=== PATIENT | male | born 1950 | race Caucasian/White ===

== ENCOUNTER 2017-04-17 17:39 | Emergency (ER) | payer SELFPAY ==
[2017-04-17 18:27] VITALS: O2SAT 100
--- NOTE | 2017-04-17 21:36 | C.PDOC ---
History Of Present Illness 66yo male, presents to ER with complaints of diarrhea for the past 3 days; he reprots 5 episodes of loose and watery diarrhea for one day and 3 episodes of soft, medium formed stools for 2 days. He thinks he might have amebiasis since he recently immigrated to the from [facility] 1 year ago. He also states he drinks a large glass of milk with oatmeal 2x a day which gives him increased belly gas sounds and loose stools with foul smelling flatulence. He denies any abdominal pain, nausea, vomiting. No other complaints. Time Seen by Provider: 04/17/17 21:18 Chief Complaint (Nursing): GI Problem History Per: Patient History/Exam Limitations: no limitations Onset/Duration Of Symptoms: Days Current Symptoms Are (Timing): Still Present Associated Symptoms: Diarrhea. denies: Nausea, Vomiting Past Medical History Reviewed: Historical Data, Nursing Documentation, Vital Signs Vital Signs: Last Vital Signs Temp 98.7 F 04/17/17 22:40 Pulse 65 04/17/17 22:40 Resp 16 04/17/17 22:40 BP 166/67 H 04/17/17 22:40 Pulse Ox 100 04/17/17 23:47 - Medical History PMH: HTN Surgical History: No Surg Hx Family History: States: No Known Family Hx - Social History Hx Alcohol Use: No Hx Substance Use: No - Immunization History Hx Tetanus Toxoid Vaccination: Yes Hx Influenza Vaccination: Yes Hx Pneumococcal Vaccination: No Review Of Systems Except As Marked, All Systems Reviewed And Found Negative. Gastrointestinal: Positive for: Diarrhea. Negative for: Nausea, Vomiting, Abdominal Pain Physical Exam - Physical Exam Appears: Non-toxic, No Acute Distress Skin: Normal Color Head: Normacephalic Eye(s): bilateral: Normal Inspection Neck: Normal ROM, Supple Cardiovascular: Rhythm Regular Respiratory: Normal Breath Sounds Gastrointestinal/Abdominal: Bowel Sounds (increased), Soft, No Tenderness Neurological/Psych: Oriented x3, Normal Speech, Normal Cognition ED Course And Treatment O2 Sat by Pulse Oximetry: 100 (RA) Pulse Ox Interpretation: Normal Medical Decision Making Medical Decision Making: mild loose stools for 3 days, improving. + increased flatulence and crampy belly discomfort when drinking large glasses of milk- of which pt believes he may be lactose intolerant. LOW susp of Amoebiasis- [place] from [place] diet and lactose intolerance educated. benign belly. Disposition Doctor Will See Patient In The: Office Counseled Patient/Family Regarding: Studies Performed, Diagnosis - Disposition Referrals: [facility] [Outside] Disposition: HOME/ ROUTINE Disposition Time: 21:35 Condition: GOOD Additional Instructions: dieta blanda de BRAT: Bananas, arroz khanna, Apples, Burr flora Jacque la leche por vitaly semana- marilee gente adulto tienen intolerancia a la leche sigue en la clinica Familiar- LOC Sylvester para hacer fan. Instructions: Lactose Intolerance, Diarrhea in Adolescents and Adults Forms: [employer] (Armenian) Print Language: BURMESE - Clinical Impression Clinical Impression: Diarrhea - Scribe Statement The provider has reviewed the documentation as recorded by the Scribe (Vicki Marcial) Provider Attestation: All medical record entries made by the Scribe were at my direction and personally dictated by me. I have reviewed the chart and agree that the record accurately reflects my personal performance of the history, physical exam, medical decision making, and the department course for this patient. I have also personally directed, reviewed, and agree with the discharge instructions and disposition.
[2017-04-17 22:41] VITALS: BP 166/67; PULSE 65; RESP 16; TEMP 98.7
== END 2017-04-17 22:41 | disposition home or self-care (01) ==
LOC: C.ER 17:39
DX: R19.7 Diarrhea, unspecified (principal)